=== PATIENT | female | born 1990 | race Caucasian/White ===

== ENCOUNTER 2021-07-09 09:04 | Emergency (ER) | payer BC ==
[~2021-07-09] VITALS: Ht 175.3 cm; Wt 54.4 kg
[2021-07-09 09:15] VITALS: BP_SYST 118
--- NOTE | 2021-07-09 09:15 | NUR ---
Pt to bed 5 for evaluation. Report given to DORIS Cabrera who will assume care.
--- NOTE | 2021-07-09 09:55 | NUR ---
ASSESSED PT, PT DROVE TO THE ER AND PRESENTED TO ER WITH COMPLAINTS OF LOWER RIGHT ABDOMINAL PAIN 07/01. PT STARTED WITH THE PAIN ON FRIDAY WHILE AT WORK. WITH NAUSEA AND CONSTIPATION PT HAS HYPOBOWEL SOUNDS ON ALL FOUR QUADRANTS. PT HAS REBOUND TENDERNESS ON LOWER RIGHT QUADRANT. PT ALSO STATES SHE HAD A LOW GRADE FEVER WITH SWEATS AT NIGHT
--- NOTE | 2021-07-09 10:05 | NUR ---
Dr James at patient bedside
[2021-07-09] MEDS ORDERED: MORPHINE 4 MG INJ. 4 MG/ML VIAL IVP ONE (10:15)
[2021-07-09] MEDS ORDERED: ONDANSETRON HCL 4 MG/2 ML VIAL IVP ONE (10:15)
--- NOTE | 2021-07-09 10:26 | NUR ---
INSERTED 20G IV R AC
--- NOTE | 2021-07-09 10:30 | NUR ---
PT TAKEN TO CT SCAN W/CONTRAST
[2021-07-09 11:00] LABS: BASOPHILS # (AUTO) 0.1 K/uL (0.0-0.2); BASOPHILS % (AUTO) 1.1 % (0.0-2.0); EOSINOPHILS # (AUTO) 0.1 K/uL (0.0-0.4); EOSINOPHILS % (AUTO) 1.6 % (0.0-4.0); HEMATOCRIT 41.1 % (36-48); HEMOGLOBIN 13.9 g/dL (12.0-16.0); LYMPHOCYTES # (AUTO) 1.1 K/uL (1.0-5.5); LYMPHOCYTES % (AUTO) 19.6 % (20.5-51.5); MEAN CORPUSCULAR HEMOGLOBIN 34 pg (27-31); MEAN CORPUSCULAR HGB CONC 34 % (32-36); MEAN CORPUSCULAR VOLUME 100 fL (79.0-98.0); MONOCYTES # (AUTO) 0.5 K/uL (0.0-1.0); MONOCYTES % (AUTO) 8.3 % (1.7-9.3); NEUTROPHILS # (AUTO) 3.8 K/uL (1.8-7.7); NEUTROPHILS % (AUTO) 69.4 % (40.0-70.0); PLATELET COUNT (AUTO) 173 K/uL (130-430); RED BLOOD CELL COUNT(AUTO) 4.13 MIL/uL (4.2-6.2); RED CELL DISTRIBUTION WIDTH 12.9 % (9.0-15.0); WHITE BLOOD COUNT (AUTO) 5.5 K/uL (4.8-10.8)
[2021-07-09 11:05] LABS: CALCIUM 9.4 mg/dL (8.4-11.0); CREATININE 0.57 mg/dL (0.55-1.30); POTASSIUM 3.9 mmol/L (3.5-5.1)
[2021-07-09 11:07] LABS: BILIRUBIN,URINE NEGATIVE (NEGATIVE); BLOOD, URINE NEGATIVE (NEGATIVE); CLARITY/URINE CLEAR (CLEAR); COLOR,URINE YELLOW (YELLOW); GLUCOSE,URINE NEGATIVE (NEGATIVE); KETONES,URINE 2+ (NEGATIVE); LEUKOCYTE ESTERASE ,URINE NEGATIVE (NEGATIVE); NITRITE, URINE NEGATIVE (NEGATIVE); PROTEIN URINE NEGATIVE (NEGATIVE); UROBILINOGEN,URINE 0.2 (0.2-1.0)
[2021-07-09 11:10] LABS: TOTAL BILIRUBIN 1.8 mg/dL (0.0-1.0)
[2021-07-09] MEDS ORDERED: POLY17PO4 PO (15:15)
[2021-07-09] MEDS ORDERED: ACET325T53 PO (15:15)
[2021-07-09] MEDS ORDERED: ONDA-8 TL (15:15)
[2021-07-09] MEDS ORDERED: DOCU-144 PO (15:15)
[2021-07-09 15:25] VITALS: BP_SYST 112
--- NOTE | 2021-07-09 15:25 | NUR ---
Patient given written and verbal discharge instructions and verbalizes understanding. Dr. Herminio MELENDEZ MD discussed with patient the results and treatment provided. Patient in stable condition. ID arm band removed. IV catheter removed intact and dressing applied, no active bleeding. Patient educated on pain management and to follow up with PMD. Pain Scale 0/10. Opportunity for questions provided and answered. Medication side effect fact sheet provided.
== END 2021-07-09 15:25 | disposition home or self-care (01) ==
LOC: SED 09:04
DX: R10.31 Right lower quadrant pain (principal)
CPT/HCPCS: 36415; 74177; 76376; 76830; 76857; 80053; 81003; 81025; 83690; 85025; 96374; 96375; 99285; J2270; J2405; Q9967